=== PATIENT | female | born 1965 | race Caucasian/White ===

== ENCOUNTER 2020-06-28 07:52 | Day surgery (SDC) | payer OTHER ==
[~2020-06-28 07:52] MED LIST: ceFAZolin 2 GM/50 ML 2 GM/50 ML BAG IV ONE
[2020-06-28 08:13] LABS: HCG UR QUAL NEGATIVE
[2020-06-28] MEDS ORDERED: LACTATED RINGERS 1,000 ML IV ONE ×3 (08:32→14:22)
[2020-06-28] MEDS ORDERED: NALOXONE 0.4 MG/ML VIAL IVP PRN (09:15)
[2020-06-28] MEDS ORDERED: ATROPINE ABBOJECT 1 MG/10 ML SYRINGE IVP PRN (09:15)
[2020-06-28] MEDS ORDERED: MORPHINE 2 MG/ML CARPUJECT IVP PRN (09:15)
[2020-06-28] MEDS ORDERED: ePHEDrine 50 MG/ML VIAL IVP PRN (09:15)
[2020-06-28] MEDS ORDERED: METOCLOPRAMIDE 10 MG/2 ML VIAL IVP PRN (09:15)
[2020-06-28] MEDS ORDERED: ONDANSETRON 4 MG/2 ML VIAL IVP PRN ×2 (09:15→14:06)
[2020-06-28] MEDS ORDERED: fentaNYL 100 MCG/2 ML VIAL IVP PRN (09:15)
[2020-06-28] MEDS ORDERED: HYDROmorphone 0.5 MG/0.5 ML SYRINGE IVP PRN (09:15)
--- NOTE | 2020-06-28 09:15 | ANESTHESIA ---
Pre-Anesthesia VS, & Labs - Diagnosis extensive left breast DCIS - Procedure simple mastectomy with sentinal node Vital Signs: Temp Pulse Resp BP Pulse Ox 36.5 C 58 L 18 109/66 99 06/28/20 08:00 06/28/20 08:00 06/28/20 08:00 06/28/20 08:00 06/28/20 08:00 Height: 5 ft 8 in Weight (kg): 73.3 kg Body Mass Index: 24.5 BMI Classification: Healthy weight - NPO >8 hours - Is Patient ?: No - Lab Results Lab results reviewed: Yes Home Medications and Allergies Home Medications: Ambulatory Orders Ascorbic Acid [Vitamin C] 5 - 10 gm PO DAILY 06/21/20 Ashwagandha Root Extract 700 mg PO DAILY 06/21/20 Cholecalciferol [Vitamin D3] 5,000 unit PO BID 06/21/20 Lactobacillus Acidophilus [Probiotic Acidophilus] 1 each PO DAILY 06/21/20 Multivitamin 1 each PO DAILY 06/21/20 Ascorbic Acid [Vitamin C] 5 - 10 gm PO DAILY 06/21/20 Ashwagandha Root Extract 700 mg PO DAILY 06/21/20 Cholecalciferol [Vitamin D3] 5,000 unit PO BID 06/21/20 Lactobacillus Acidophilus [Probiotic Acidophilus] 1 each PO DAILY 06/21/20 Multivitamin 1 each PO DAILY 06/21/20 Allergies/Adverse Reactions: Allergies Allergy/AdvReac Type Severity Reaction Status Date / Time adhesive AdvReac mendoza skin Verified 06/21/20 11:52 lactose AdvReac Rash Verified 06/21/20 11:52 Anes History & Medical History - Anesthetic History Anesthesia Complications: reports: No previous complications Family history of Anesthesia Complications: Denies Family history of Malignant Hyperthermia: Denies - Medical History Cardiovascular: reports: None Pulmonary: reports: Asthma Gastrointestinal: reports: None Urinary: reports: None Musculoskeletal: reports: Chronic back pain, Other (neck pain) Endocrine/Autoimmune: reports: Other Skin: reports: Other Exam General: Alert, Oriented x3, Cooperative, No acute distress Dental: WNL Mouth Openin Fingerbreadth Neck Mobility: Reduced Mallampati classification: II Respiratory: Lungs clear, Normal breath sounds, No respiratory distress, No accessory muscle use Cardiovascular: Regular rate, Normal S1, Normal S2, No murmurs Plan Anesthesia Type: General Consent for Procedure(s) Verified and Reviewed: Yes Code Status: Attempt Resuscitation ASA classification: 2-Mild systemic disease Is this case an emergency?: No
[2020-06-28] MEDS ORDERED: SCOPOLAMINE PATCH TOP SCH (10:00)
[2020-06-28] MEDS ORDERED: LACTATED RINGERS 1,000 ML IV SCH (10:00)
[2020-06-28] MEDS ORDERED: BUPIVACAINE 0.5% PF 30 ML VIAL ONE (10:44)
[2020-06-28] MEDS ORDERED: LIDOCAINE 2%-EPI 1:100000 20 ML MDV ONE (10:44)
[2020-06-28] MEDS ORDERED: LIDOCAINE-MPF 2% 5 ML VIAL ONE (11:09)
[2020-06-28] MEDS ORDERED: PROPOFOL 200 MG/20 ML VIAL IVP ONE (11:09)
[2020-06-28] MEDS ORDERED: fentaNYL 100 MCG/2 ML VIAL ONE ×2 (11:09→13:00)
[2020-06-28] MEDS ORDERED: MIDAZOLAM 2 MG/2 ML VIAL ONE (11:09)
[2020-06-28] MEDS ORDERED: BUPIVACAINE 0.5% PF 30 ML VIAL INFIL ONE (11:33)
[2020-06-28] MEDS ORDERED: ePHEDrine 50 MG/ML VIAL IVP ONE (11:33)
[2020-06-28] MEDS ORDERED: LIDOCAINE 2%-EPI 1:100000 20 ML MDV SUBQ ONE (11:33)
[2020-06-28] MEDS ORDERED: ACETAMINOPHEN 1,000 MG/100 ML 100 ML IV ONE (11:46)
[2020-06-28] MEDS ORDERED: ONDANSETRON 4 MG/2 ML VIAL ONE (12:09)
[2020-06-28] MEDS ORDERED: DEXAMETHASONE 4 MG/ML VIAL ONE (12:09)
--- NOTE | 2020-06-28 12:59 | Nuclear Medicine Report ---
PROCEDURE: Lymph Node Scintigraphy INDICATIONS: LT BREAST DCIS RADIOPHARMACEUTICAL: 0.5-1.0 mCi Millipore filtered Tc-99m sulfur colloid. TECHNIQUE: The area around the nipple was prepped and draped in a sterile fashion. Tc-99m sulfur colloid was in jected intra-dermally in the outer edge of the areola in the left breast. Images were obtained subse quently. A body contour outline was obtained. FINDINGS: There is/are 2 vaguely filling lymph node(s) in the ipsilateral axilla, which is marked on the skin a nd the images for referring physician. IMPRESSION: Administration of radiotracer into the left breast periareolar region for intra-operativ e sentinel lymph node localization. Reviewed by: Cata Mariano MD on 06/28/2020 12:57 PM PST Approved by: Cata Mariano MD on 06/28/2020 12:57 PM PST Station ID: [id number]
--- NOTE | 2020-06-28 13:57 | OPERATIVE REPORT ---
Operative Report - General Procedure Date: 06/28/20 Planned Procedure: Bilateral mastectomy and left axillary node dissection Pre-Op Diagnosis: Extensive left breast DCIS Procedure Performed: Bilateral mastectomy and left axillary node biopsy Post Op Diagnosis: Same - Procedure Note Primary Surgeon: Mariel Anesthesia Provider: Claudio Sinclair Anesthesia Technique: General LMA, Local Pathology: 1. Right breast 2. Left axillary sentinel node with 10 second count >1340, background in the axilla of 30, background in the room of 0 3. Left breast Estimated Blood Loss (mL): 75 Drain/Tube Type: Arden drain (2 19F Arden drains - one in each inframmary pocket) Indications: Extensive left breast DCIS Findings: 1. one sentinel node 2. well vascularized tissue bilaterally Complications: None apparent - Other Other Information/Narrative: After obtaining informed consent, the patient is brought to the operating room and placed in the supine position on the operating table. Following successful induction of general endotracheal anesthesia, appropriate padding of all bony prominences, and placement of appropriate monitors, the right chest and axilla were prepped and draped in the standard surgical fashion. A timeout was held per scope protocol. All elements of the surgical safety checklist were followed before, during, and after the procedure. We began the procedure by infiltrating half percent Marcaine plain throughout the subcutaneous tissue of the breast and beneath the pectoralis major and minor muscles As well as portions of the serratus anterior. This was to done to provide a field block.An incision was fashioned elliptically. As this was not intended to be a skin sparing procedure and was done for hygiene purposes, every attempt was made to create a completely flat scar. This incision was then completed with a 10 blade scalpel. It was carried through the skin and subcutaneous tissue. Traction and countertraction were then used to divide the underlying breast tissue from the overlying dermis from the level of the incision to the clavicle superiorly medially to the sternum inferiorly to the inframammary fold and lateral to the posterior axillary line. Once a circumferential dissection had been obtained, the breast was removed in a medial to lateral fashion. All perforators were addressed with sutures or with cautery prior to division. The breast was then marked with a short stitch superior and a long stitch lateral. The wound was irrigated with warm water and aspirated free of all fluid and particulate matter. It was checked once again for hemostasis and touched up in just a couple of places with cautery. A 15 [place] Arden drain was placed in the inframammary pocket and brought out inferior medially. It was sewn into place. The skin edges were then closed in an interrupted fashion with Vicryl suture and the Endo Close device was used to approximate the skin. T The wound was covered and we turned our attention to the left side. The site of the brightest node had been marked in radiology with 2 skin marker axis. The neoprobe was used to identify the site of greatest uptake at level 2 in the patient's axilla. The patient is quite thin and has minimal axillary tissue. An incision was created over this area of uptake and carried through the skin and subcutaneous tissue to enter the axillary node packet. The first sentinel node was easily identified. It was large and firm. It was carefully dissected free from surrounding stop structures sharply, all lymphatics and vasculature were addressed with clips prior to division. The node was liberated into the field. 10-second counts are recorded. Survey of the axilla revealed a background count of 30 and no additional targets for dissection. The axilla was examined for hemostasis. It was irrigated with warm water and aspirated free of fluid and particulate matter. Background in the axilla was checked and found to be 30. Background in the room was 0. The axillary incision was then closed in 2 layers with Vicryl sutures.The skin edges were reapproximated with the Endo Close device. All sponge, needle, and instrument counts were correct at the conclusion of the case. The patient was allowed to wake from anesthesia without difficulty and taken to the postanesthesia care unit in good condition. We now turned our attention to the left breast mastectomy. We began the procedure by infiltrating half percent Marcaine plain throughout the subcutaneous tissue of the breast and beneath the pectoralis major and minor muscles as well as portions of the serratus anterior. This was to done to provide a field block. An incision was fashioned elliptically and designed to mirror the incision on the right. This incision was then completed with a 10 blade scalpel. It was carried through the skin and subcutaneous tissue. Traction and countertraction were then used to divide the underlying breast tissue from the overlying dermis from the level of the incision to the clavicle superiorly medially to the sternum inferiorly to the inframammary fold and lateral to the posterior axillary line. Once a circumferential dissection had been obtained, the breast was removed in a medial to lateral fashion. All perforators were addressed with sutures or with cautery prior to division. The breast was then marked with a short stitch superior and a long stitch lateral. The wound was irrigated with warm water and aspirated free of all fluid and particulate matter. It was checked once again for hemostasis and touched up in just a couple of places with cautery. A 15 [place] Arden drain was placed in the inframammary pocket and brought out inferior medially. It was sewn into place. The skin edges were then closed in an interrupted fashion with Vicryl suture and the Endo Close device was used to approximate the skin. All of the wounds were dressed with Dermabond and a binder was applied to the chest. All sponge, needle, and instrument counts were correct at the conclusion of the case. The patient was allowed to wake from anesthesia without difficulty and taken to the postanesthesia care unit in good condition.
[2020-06-28] MEDS: KETOROLAC 30 MG/ML VIAL IVP STA ×2 (14:00→17:44)
[2020-06-28] MEDS: HYDROmorphone 1 MG/ML CARPUJECT ONE ×2 (14:02→14:15)
[2020-06-28] MEDS ORDERED: SCOPOLAMINE PATCH TOP ONE (14:03)
[2020-06-28] MEDS ORDERED: KETOROLAC 30 MG/ML VIAL ONE (14:03)
[2020-06-28] MEDS ORDERED: ACETAMINOPHEN 325 MG TABLET PO PRN (14:06)
[2020-06-28] MEDS ORDERED: IBUPROFEN 600 MG TABLET PO PRN (14:06)
[2020-06-28] MEDS ORDERED: SODIUM CHLORIDE FLUSH 0.9% 10 ML SYRINGE IVP PRN (14:19)
[2020-06-28] MEDS ORDERED: HYDROmorphone 1 MG/ML CARPUJECT IVP PRN (14:19)
[2020-06-28] MEDS ORDERED: LORazepam 2 MG/ML VIAL IVP PRN (14:19)
--- NOTE | 2020-06-28 15:04 | ANESTHESIA POST OP EVALUATION ---
Anesthesia Post Eval - Post Anesthesia Eval Vitals: Last Vital Signs Temp 36.4 C L 06/28/20 15:00 Pulse 62 06/28/20 15:00 Resp 16 06/28/20 15:00 BP 117/65 06/28/20 15:00 Pulse Ox 98 06/28/20 15:00 CV Function Including HR & BP: positive: Stable Pain Control: positive: Satisfactory Nausea & Vomiting: positive: Negative Mental Status: positive: Patient Participates Respiratory Status: Airway Patent Hydration Status: Satisfactory
[2020-06-28] MEDS ORDERED: ALBUTEROL NEB 2.5 MG/3 ML INH PRN (17:11)
[2020-06-28] MEDS: ACETAMINOPHEN 325 MG TABLET PO SCH ×2 (17:43→22:00)
[2020-06-28] MEDS: LACTATED RINGERS 1,000 ML IV SCH (17:46)
[2020-06-28] MEDS: SODIUM CHLORIDE FLUSH 0.9% 10 ML SYRINGE IVP SCH (17:47)
[2020-06-28] MEDS: oxyCODONE 5 MG TABLET PO PRN (20:09)
[2020-06-28] MEDS: ceFAZolin 2 GM/50 ML 2 GM/50 ML BAG IV SCH (22:11)
[2020-06-29] MEDS: SODIUM CHLORIDE FLUSH 0.9% 10 ML SYRINGE IVP SCH ×2 (00:59→09:06)
[2020-06-29] MEDS: oxyCODONE 5 MG TABLET PO PRN (01:09)
[2020-06-29] MEDS: ACETAMINOPHEN 325 MG TABLET PO SCH ×4 (01:29→12:50)
[2020-06-29] MEDS: LACTATED RINGERS 1,000 ML IV SCH (05:19)
[2020-06-29] MEDS: ceFAZolin 2 GM/50 ML 2 GM/50 ML BAG IV SCH (05:21)
[2020-06-29] MEDS ORDERED: PANTOPRAZOLE 40 MG TABLET PO SCH (07:00)
[2020-06-29] MEDS ORDERED: DOCUSATE SODIUM 250 MG CAPSULE PO SCH (09:00)
[2020-06-29 12:33] VITALS: BP 108/56
== END 2020-06-29 12:55 | disposition home or self-care (01) ==
LOC: SDS 07:52 → MS2 14:50 → SDS 06-29 12:55
PROVIDERS: ATTEND Surgery
PROC: 0HBU0ZX Excision of Left Breast, Open Approach, Diagnostic (ICD-10-PCS; 2020-06-28)
PROC: 0HBV0ZZ Excision of Bilateral Breast, Open Approach (ICD-10-PCS; principal; 2020-06-28 10:15)
DX: D05.12 Intraductal carcinoma in situ of left breast (principal)
CPT/HCPCS: 19303; 38525; 78195; 81025; A9270; J0131; J0690; J1170; J3490; J7120; 88307; 88342